=== PATIENT | female | born 1985 | race Two or more races ===

== ENCOUNTER 2020-11-29 20:58 | Emergency (ER) | payer BC ==
[~2020-11-29] VITALS: Ht 167.6 cm; Wt 90.0 kg
[2020-11-29 22:41] LABS: BILIRUBIN,URINE NEGATIVE (NEG); CLARITY,URINE CLOUDY; COLOR,URINE RED; NITRITE,URINE NEGATIVE (NEG); PH,URINE 6.5 (<5.0-8.0); PROTEIN,URINE 30 mg/dL (NEG-TRACE)
[2020-11-29 22:54] LABS: RBC,URINE TNTC /HPF (0-2)
[2020-11-29 22:55] LABS: BACTERIA,URINE 0 /HPF (0-FEW)
[2020-11-29 23:36] LABS: U PREG PATIENT NEGATIVE (NEG)
[2020-11-30] MEDS ORDERED: LIDO:MAALOX 1:1 20 ML SINGLE DOSE. SWSW ONE
[2020-11-30 00:30] LABS: BASO % 1 % (0-3); EOS # 0.3 x10^3/uL (0.0-0.7); EOS % 3 % (0-3); HEMATOCRIT 40.3 % (36.0-47.0); HEMOGLOBIN 13.7 g/dL (12.0-15.5); LYMPH # 2.1 x10^3/uL (1.0-4.8); LYMPH % 22 % (24-48); MEAN CORPUSCULAR HEMOGLOBIN 30 pg (25-35); MEAN CORPUSCULAR HGB CONC 34 g/dL (31-37); MEAN CORPUSCULAR VOLUME 89 fL (79-100); MONO # 0.6 x10^3/uL (0.0-1.1); MONO % 7 % (0-9); NEUT # 6.3 x10^3/uL (1.8-7.7); NEUT % 67 % (31-73); PLATELET COUNT 259 x10^3/uL (140-400); RED BLOOD COUNT 4.54 x10^6/uL (3.50-5.40); WHITE BLOOD COUNT 9.3 x10^3/uL (4.0-11.0)
[2020-11-30 00:47] LABS: CALCIUM 8.9 mg/dL (8.5-10.1); CREATININE 0.7 mg/dL (0.6-1.0); GFR 94.7; POTASSIUM 3.5 mmol/L (3.5-5.1)
[2020-11-30 00:50] LABS: ALBUMIN 3.8 g/dL (3.4-5.0); TOTAL BILIRUBIN 0.3 mg/dL (0.2-1.0); TOTAL PROTEIN 7.6 g/dL (6.4-8.2)
[2020-11-30 02:47] VITALS: BP 135/66
--- NOTE | 2020-11-30 03:00 | RAD ---
EXAM: ULTRASOUND ABDOMEN LIMITED CLINICAL HISTORY: Abdominal pain, elevated liver function tests COMPARISON: None available. TECHNIQUE: Limited ultrasound examination of the right upper quadrant of the abdomen was performed. FINDINGS: The pancreas is not well-visualized. The visualized IVC is within normal limits of dimension. The liver length measures 15 cm/s .The gallbladder is moderately distended. The gallbladder wall thic kness measures 3.7 mm. The common bile duct measures 2.8 mm in transverse dimension. Echogenicity martha ntified in the gallbladder likely gallstones. The right kidney measures 10.2 cm in length. IMPRESSION: 1.Cholelithiasis. Electronically signed by: Reji Huggins MD (11/30/2020 2:57 AM) [id number]
[2020-11-30] MEDS ORDERED: SUCR1TAB35 PO (03:22)
[2020-11-30] MEDS ORDERED: ESOM20CA PO (03:22)
--- NOTE | 2020-11-30 03:22 | ED.ADGEN ---
Past Medical History Past Surgical History: Additional Past Surgical Histo: 3 C SECTIONS Smoking Status: Never Smoker Alcohol Use: Occasionally General Adult EDM: Chief Complaint: ABDOMINAL PAIN HPI: HPI: Patient is a 35 year old female who presents to the Emergency Room complaining of epigastric abdominal pain that feels like burning and intermittently radiates up into her chest and around her abdomen. She also gets pain that radiates to her back. Pain has been intermittent for 3 weeks. Nothing seems to make the pain better or worse. Patient has not tried to take anything at home. She denies any kind of fever, chills, sweats, nausea, vomiting, diarrhea, constipation. She has never had anything like this prior to 3 weeks ago. Review of Systems: Review of Systems: Complete ROS is negative unless otherwise documented in HPI Current Medications: Current Medications Medications (Trade) Dose Ordered Sig/Jenny Start Time Stop Time Status Last Admin Dose Admin Multi-Ingredient Mouthwash/Gargle (Gi Cocktail) 20 ml 1X ONCE 11/30/20 00:00 11/30/20 00:01 DC 11/30/20 00:16 20 ML Allergies: Allergies: Allergies Coded Allergies Type Severity Reaction Last Updated Verified No Known Drug Allergies 11/29/20 No Physical Exam: PE: General: Awake, alert, NAD. Well Nourished, well hydrated. Cooperative HEENT: Atraumatic, EOMI, PERRL, airway patent, moist oral mucosa Neck: Supple, trachea midline Respiratory: CTA bilaterally, normal effort, no wheezing/crackles CV: RRR, no murmur, cap refill <2 GI: Soft, nondistended, epigastric tenderness, no masses MSK: No obvious deformities Skin: Warm, dry, intact Neuro: A&O x3, speech NL, sensory and motor grossly intact, no focal deficits Psych: Normal affect, normal mood, not suicidal or homicidal Current Patient Data: Labs: Laboratory Tests Test 11/29/20 22:00 11/30/20 00:24 Urine Collection Type Unknown Urine Color Red Urine Clarity Cloudy Urine pH 6.5 (<5.0-8.0) Urine Specific Amory 1.020 (1.000-1.030) Urine Protein 30 mg/dL (NEG-TRACE) Urine Glucose (UA) Negative mg/dL (NEG) Urine Ketones (Stick) Trace mg/dL (NEG) Urine Blood Large (NEG) Urine Nitrite Negative (NEG) Urine Bilirubin Negative (NEG) Urine Urobilinogen Dipstick 1.0 mg/dL (0.2 mg/dL) Urine Leukocyte Esterase Moderate (NEG) Urine RBC Tntc /HPF (0-2) Urine WBC 5-10 /HPF (0-4) Urine Squamous Epithelial Cells Mod /LPF Urine Bacteria 0 /HPF (0-FEW) Urine Mucus Mod /LPF Urine Test Negative (NEG) White Blood Count 9.3 x10^3/uL (4.0-11.0) Red Blood Count 4.54 x10^6/uL (3.50-5.40) Hemoglobin 13.7 g/dL (12.0-15.5) Hematocrit 40.3 % (36.0-47.0) Mean Corpuscular Volume 89 fL (79-100) Mean Corpuscular Hemoglobin 30 pg (25-35) Mean Corpuscular Hemoglobin Concent 34 g/dL (31-37) Red Cell Distribution Width 13.0 % (11.5-14.5) Platelet Count 259 x10^3/uL (140-400) Neutrophils (%) (Auto) 67 % (31-73) Lymphocytes (%) (Auto) 22 % (24-48) L Monocytes (%) (Auto) 7 % (0-9) Eosinophils (%) (Auto) 3 % (0-3) Basophils (%) (Auto) 1 % (0-3) Neutrophils # (Auto) 6.3 x10^3/uL (1.8-7.7) Lymphocytes # (Auto) 2.1 x10^3/uL (1.0-4.8) Monocytes # (Auto) 0.6 x10^3/uL (0.0-1.1) Eosinophils # (Auto) 0.3 x10^3/uL (0.0-0.7) Basophils # (Auto) 0.0 x10^3/uL (0.0-0.2) Sodium Level 142 mmol/L (136-145) Potassium Level 3.5 mmol/L (3.5-5.1) Chloride Level 104 mmol/L (98-107) Carbon Dioxide Level 29 mmol/L (21-32) Anion Gap 9 (6-14) Blood Urea Nitrogen 10 mg/dL (7-20) Creatinine 0.7 mg/dL (0.6-1.0) Estimated GFR (Cockcroft-Gault) 94.7 BUN/Creatinine Ratio 14 (6-20) Glucose Level 89 mg/dL (70-99) Calcium Level 8.9 mg/dL (8.5-10.1) Total Bilirubin 0.3 mg/dL (0.2-1.0) Aspartate Amino Transferase (AST) 39 U/L (15-37) H Alanine Aminotransferase (ALT) 106 U/L (14-59) H Alkaline Phosphatase 185 U/L (46-116) H Total Protein 7.6 g/dL (6.4-8.2) Albumin 3.8 g/dL (3.4-5.0) Albumin/Globulin Ratio 1.0 (1.0-1.7) Lipase 77 U/L (73-393) Laboratory Tests 11/30/20 00:24 Laboratory Tests 11/30/20 00:24 Vital Signs: Vital Signs Date Time Temp Pulse Resp B/P (MAP) Pulse Ox O2 Delivery O2 Flow Rate FiO2 11/30/20 02:47 62 20 135/66 (89) 96 Room Air 11/29/20 23:00 98.9 98.9 EKG: EKG: [] Heart Score: C/O Chest Pain: N/A Risk Factors: Risk Factors: DM, Current or recent (<one month) smoker, HTN, HLP, family history of CAD, obesity. Risk Scores: Score 0 - 3: 2.5% MACE over next 6 weeks - Discharge Home Score 4 - 6: 20.3% MACE over next 6 weeks - Admit for Clinical Observation Score 7 - 10: 72.7% MACE over next 6 weeks - Early Invasive Strategies Radiology/Procedures: Radiology/Procedures: [] Course & Med Decision Making: Course & Med Decision Making Pertinent Labs and Imaging studies reviewed. (See chart for details) Patient is a previously healthy 35-year-old female presents to the emergency room complaining of epigastric pain intermittently for the last 3 weeks. Patient has associated burning and irritation. Symptoms are most consistent with peptic ulcer disease or gastritis. It is possible she could have acute cholecystitis. Lab work was done and patient does have some mildly elevated LF Ts. Ultrasound was done which does not suggest acute cholecystitis, however patient does have gallstones. She may be having a combination of peptic ulcer disease and biliary colic. Will refer her to surgery. We will place her on Nexium and Carafate. Patient is pain-free after GI cocktail. Patient's test results and vitals while in the ED were fully reviewed and discussed with the patient. Patient is stable and at this time does not need admission to the hospital. We have discussed strict return precautions and the importance of following up with their Primary Care Physician. Patient stated understanding and was given an opportunity to ask any questions. Patient is in agreement with luis Mullen Disclaimer: Paz Disclaimer: This electronic medical record was generated, in whole or in part, using a voice recognition dictation system. Departure Departure Impression: Primary Impression: Gastritis Additional Impression: Biliary colic Disposition: HOME / SELF CARE / HOMELESS Condition: STABLE Referrals: NO PCP (PCP) ANABEL CHARLES MD Patient Instructions: Biliary Colic, Peptic Ulcer Disease Scripts Sucralfate (CARAFATE) 1 Gm Tablet 1 TAB PO QID for 30 Days, #120 TAB 0 Refills Prov: ZAHRA MENENDEZ MD 11/30/20 Esomeprazole Magnesium (NEXIUM CAPSULE) 20 Mg Capsule. 1 CAP PO DAILY, #14 CAP 0 Refills Prov: ZAHRA MENENDEZ MD 11/30/20 Problem Qualifiers ZAHRA MENENDEZ MD Nov 30, 2020 03:22
== END 2020-11-30 03:38 | disposition home or self-care (01) ==
LOC: ER 20:58
DX: K29.70 Gastritis, unspecified, without bleeding (principal); K80.50 Calculus of bile duct without cholangitis or cholecystitis without obstruction
CPT/HCPCS: 36415; 76705; 80053; 81001; 81025; 83690; 85025; 87086; 99285-25